=== PATIENT | male | born 1955 ===

== ENCOUNTER 2021-03-09 05:15 | Observation (INO) | payer OTHER ==
[2021-03-09 05:41] VITALS: BMI 33.0
[2021-03-09 05:56] LABS: HEMATOCRIT 40.8 % (35.4-49); HEMOGLOBIN 13.3 GM/dL (11.7-16.9); MCHC 32.6 g/dl (32.0-35.9); MEAN CELL VOLUME 85.8 fl (80-96); MEAN PLT VOLUME 8.7 fl (7.5-11.1); PLATELET COUNT 234 10^3/uL (134-434); RBC 4.76 M/mm3 (4.00-5.60); RDW 13.1 % (11.9-15.9); WHITE BLOOD COUNT 12.1 K/mm3 (4.0-10.0)
[2021-03-09 06:05] LABS: INR 1.13 (0.83-1.09); PROTHROMBIN TIME (PATIENT) 13.9 SEC (9.7-13.0)
[2021-03-09 06:13] LABS: CHLORIDE 105 mmol/L (98-107); SODIUM 139 mmol/L (136-145)
[2021-03-09 06:16] LABS: ALBUMIN 3.7 g/dl (3.4-5.0); ANION GAP 13 MMOL/L (8-16); BLOOD UREA NITROGEN 20.6 mg/dL (7-18); CALCIUM 8.8 mg/dL (8.5-10.1); CO2 21 mmol/L (21-32); GLUCOSE,RANDOM 221 mg/dL (74-106); MAGNESIUM 2.2 mg/dL (1.8-2.4)
[2021-03-09 06:19] LABS: CREATININE 1.4 mg/dL (0.55-1.3); SGOT/AST 54 U/L (15-37); SGPT/ALT 70 U/L (13-61)
[2021-03-09 06:21] LABS: BILIRUBIN,TOTAL 0.6 mg/dL (0.2-1); TOT PROT 6.9 g/dl (6.4-8.2)
[2021-03-09 06:22] LABS: ALK PHOS 83 U/L (45-117)
[2021-03-09 06:46] LABS: LACTIC ACID 6.3 mmol/L (0.4-2.0)
[2021-03-09] MEDS ORDERED: ASPIRIN 81 MG CHEWABLE TABLETS PO ONE (08:12)
[2021-03-09] MEDS ORDERED: ACETAMINOPHEN 1000 MG/100 ML VIAL (NON FORMULARY) IVPB ONE (08:20)
[2021-03-09] MEDS ORDERED: SODIUM CHLORIDE 0.9% 500 ML INFUS.BAG IV ONE (08:20)
[2021-03-09] MEDS ORDERED: ACETAMINOPHEN INJECTION 100 ML IVPB ONE (09:24)
[2021-03-09] MEDS ORDERED: ASPIRIN 81 MG CHEWABLE TABLETS ONE (09:24)
[2021-03-09] MEDS ORDERED: SODIUM CHLORIDE 1,000 ML IV STA ×2 (10:11)
[2021-03-09] MEDS ORDERED: ACETAMINOPHEN 325 MG TABLET (FP) PO PRN (10:11)
[2021-03-09] MEDS ORDERED: SODIUM CHLORIDE 1,000 ML IV SCH (10:15)
[2021-03-09] MEDS: SODIUM CHLORIDE 1,000 ML IV SCH (10:17)
[2021-03-09 12:25] LABS: METHADONE, UR NEGATIVE (NEGATIVE); OPIATES, URI NEGATIVE (NEGATIVE); PHENCYCLIDINE,URINE NEGATIVE (NEGATIVE); URINE BENZODIAZEPINES NEGATIVE (NEGATIVE)
[2021-03-09 12:27] LABS: COCAINE, UR POSITIVE (NEGATIVE); URINE AMPHETAMINES NEGATIVE (NEGATIVE); URINE BARBITURATES NEGATIVE (NEGATIVE)
[2021-03-09 13:13] LABS: LACTIC ACID 2.9 mmol/L (0.4-2.0)
[2021-03-09] MEDS: INSULIN SLIDING SCALE (NOVOLOG) 1 VIAL SQ SCH ×2 (17:47→21:07)
[2021-03-09] MEDS: HEPARIN NA (PORCINE) 5,000 UNITS/ML 1ML VIAL SQ SCH ×2 (18:02→21:07)
[2021-03-09] MEDS: LIDOCAINE 5% TOPICAL PATCH TP SCH (18:02)
[2021-03-09] MEDS: LIDOCAINE PATCH REMOVAL MC SCH (21:08)
[2021-03-10] MEDS: INSULIN SLIDING SCALE (NOVOLOG) 1 VIAL SQ SCH ×4 (06:19→21:34)
[2021-03-10] MEDS: HEPARIN NA (PORCINE) 5,000 UNITS/ML 1ML VIAL SQ SCH ×3 (06:19→21:33)
[2021-03-10] MEDS: SODIUM CHLORIDE 1,000 ML IV SCH ×2 (06:39→12:12)
[2021-03-10 07:56] LABS: HEMATOCRIT 35.3 % (35.4-49); HEMOGLOBIN 11.7 GM/dL (11.7-16.9); MCH 27.9 pg (25.7-33.7); MCHC 33.1 g/dl (32.0-35.9); MEAN CELL VOLUME 84.2 fl (80-96); MEAN PLT VOLUME 9.5 fl (7.5-11.1); PLATELET COUNT 172 10^3/uL (134-434); RBC 4.19 M/mm3 (4.00-5.60); RDW 13.1 % (11.9-15.9); WHITE BLOOD COUNT 8.1 K/mm3 (4.0-10.0)
[2021-03-10 08:21] LABS: ALBUMIN 3.2 g/dl (3.4-5.0); BLOOD UREA NITROGEN 14.1 mg/dL (7-18); CALCIUM 8.3 mg/dL (8.5-10.1)
[2021-03-10 08:22] LABS: BILIRUBIN,TOTAL 0.7 mg/dL (0.2-1); MAGNESIUM 2.1 mg/dL (1.8-2.4)
[2021-03-10 08:23] LABS: CREATININE 0.9 mg/dL (0.55-1.3)
[2021-03-10 08:24] LABS: PHOSPHOROUS 2.2 mg/dL (2.5-4.9)
[2021-03-10 08:25] LABS: TOT PROT 5.8 g/dl (6.4-8.2)
[2021-03-10] MEDS ORDERED: POTASSIUM PHOSPHATE 30 MM in DEXTROSE 5%-WATER - 500 ML IVPB ONE (08:28)
[2021-03-10] MEDS: LIDOCAINE 5% TOPICAL PATCH TP SCH (09:58)
[2021-03-10] MEDS ORDERED: POTASSIUM PHOSPHATE 30 MM in SODIUM CHLORIDE 500 ML IVPB ONE (10:00)
[2021-03-10] MEDS ORDERED: amLODIPine BESYLATE 5 MG TABLET (FP) PO SCH (11:00)
[2021-03-10] MEDS ORDERED: PT OWN MED DRAWER 7, Y5N ONE (12:04)
[2021-03-10] MEDS ORDERED: amLODIPine BESYLATE 5 MG TABLET (FP) PO ONE (17:30)
[2021-03-10] MEDS: LIDOCAINE PATCH REMOVAL MC SCH (21:34)
[2021-03-11] MEDS: HEPARIN NA (PORCINE) 5,000 UNITS/ML 1ML VIAL SQ SCH (06:11)
[2021-03-11] MEDS: INSULIN SLIDING SCALE (NOVOLOG) 1 VIAL SQ SCH (06:11)
[2021-03-11 07:54] LABS: BASO % 0.7 % (0-2.0); EOS % 0.9 % (0-4.5); HEMATOCRIT 38.5 % (35.4-49); HEMOGLOBIN 12.7 GM/dL (11.7-16.9); LYMPH % 31.2 % (8-40); MEAN CELL VOLUME 84.9 fl (80-96); MEAN PLT VOLUME 10.4 fl (7.5-11.1); MONO % 10.1 % (3.8-10.2); NEUT % 57.1 % (42.8-82.8); PLATELET COUNT 169 10^3/uL (134-434); RBC 4.54 M/mm3 (4.00-5.60); RDW 13.1 % (11.9-15.9); WHITE BLOOD COUNT 7.7 K/mm3 (4.0-10.0)
[2021-03-11 08:22] LABS: BLOOD UREA NITROGEN 11.9 mg/dL (7-18)
[2021-03-11 08:23] LABS: ALBUMIN 3.5 g/dl (3.4-5.0); CALCIUM 8.9 mg/dL (8.5-10.1)
[2021-03-11 08:25] LABS: CREATININE 0.8 mg/dL (0.55-1.3); PHOSPHOROUS 2.4 mg/dL (2.5-4.9)
[2021-03-11 08:27] LABS: BILIRUBIN,TOTAL 1.1 mg/dL (0.2-1); TOT PROT 6.6 g/dl (6.4-8.2)
[2021-03-11] MEDS ORDERED: NAPH,MB-DB/K PH,MBDB POWDER PACKET PO ONE (08:31)
[2021-03-11] MEDS: LIDOCAINE 5% TOPICAL PATCH TP SCH (09:24)
[2021-03-11] MEDS: SODIUM CHLORIDE 1,000 ML IV SCH (09:25)
[2021-03-11] MEDS ORDERED: amLODIPine BESYLATE 10 MG TABLET (FP) PO SCH (10:00)
[2021-03-11 10:25] VITALS: BP 149/88; PULSE 74; TEMP 98.6
== END 2021-03-11 12:48 | disposition home or self-care (01) ==
LOC: JER 05:15 → JERBED 05:17 → J4W 16:44
PROVIDERS: ADMIT Internal Medicine; ATTEND Internal Medicine
PROC: 3E033GC Introduction of Other Therapeutic Substance into Peripheral Vein, Percutaneous Approach (ICD-10-PCS; principal; 2021-03-09)
PROC: 3E0337Z Introduction of Electrolytic and Water Balance Substance into Peripheral Vein, Percutaneous Approach (ICD-10-PCS; 2021-03-09)
DX: R07.89 Other chest pain (principal); R55 Syncope and collapse; I10 Essential (primary) hypertension; F10.10 Alcohol abuse, uncomplicated; F14.10 Cocaine abuse, uncomplicated; R94.5 Abnormal results of liver function studies; R73.9 Hyperglycemia, unspecified; R74.01 Elevation of levels of liver transaminase levels; R73.03 Prediabetes; K70.10 Alcoholic hepatitis without ascites; N17.9 Acute kidney failure, unspecified
CPT/HCPCS: 36415; 70450-TC; 71045-TC-FY; 80053; 80307; 82550; 82553; 82962; 83036; 83605; 83735; 84100; 84146; 84443; 84484; 85025; 85027; 85610; 93005; 93010; 93306-TC; 94010; 96361; 96365; 96366; 97116-GP; 97161-GP; 99285-25; C9803; G0378; G0480; J0131; J1644; U0003; U0005